=== PATIENT | male | born 1940 | race Caucasian/White ===

== ENCOUNTER 2017-01-20 08:27 | Outpatient (CLI) | payer MEDICARE, BC ==
[~2017-01-20] VITALS: Ht 180.3 cm; Wt 100.0 kg
--- NOTE | ~2017-01-20 | HEMODYNAMI ---
PATIENT:JENNIE YEBOAH MEDICAL RECORD: [id number] : 36 LOCATION:[facility] ADMISSION DATE: 01/20/17 Generatedon:01/20/201714:21 Patient name: JENNIE YEBOAH Patient #: [id number] SSN: [id number] : 1940 Date of study: 01/20/2017 Page: Of Hemodynamic Procedure Report Patient Data Patient Demographics Procedure consent was obtained First Name: JENNIE Gender: Male Last Name: OBINNA : 1940 [facility] Initial: L Age: 76 year(s) Patient #: [id number] Race: SSN: [id number] Additional ID: [id number] Contact details [address]: [address] [place] [address] State: [place] City: [place] Zip code: [address] Admission Admission Data Admission Date: 01/20/2017 Admission Time: 8:27 Arrival Date: 01/20/2017 Arrival Time: 11:00 Admit Source: Other Insurance Payor: Medicare Lab Results Lab Result Date: 01/20/2017 Lab Result Time: 0:00 Biochemistry Name Units Result Min Max BUN mg/dl 21 --(----)-* 7 18 Creatinine mg/dl 1.4 --(----)*- 0.6 1.3 CBC Name Units Result Min Max Hemoglobin g/dl 13.7 --(*---)-- 13.5 17.5 Procedure Procedure Types Cath Procedure Diagnostic Procedure LHC LH w/Coronaries PCI Procedure Coronary Stent Initial Miscellaneous Procedures Moderate Sedation up to 15 minutes Procedure Description Procedure Date Procedure Date: 01/20/2017 Procedure Start Time: 13:44 Procedure End Time: 14:17 Procedure Staff Name Function Hima Laurent MD Performing Physician Jacqueline Huynh RT Scrub José Antonio Coburn RN Nurse Esha Lozoya RT Monitor Indication Angina Procedure Data Cath Procedure Fluoroscopy Diagnostic fluoroscopy Total fluoroscopy Time: 9.1 time: 9.1 min min Diagnostic fluoroscopy Total fluoroscopy dose: dose: 1272 mGy 1272 mGy Contrast Material Contrast Material Type Amount (ml) Isovue 300 144 Entry Location Entry Primary Successful Side Size Upsize Upsize Entry Closure Agiullon ccessful Closure Location (Fr) 1 (Fr) 2 (Fr) Remarks Device Remarks Radial Right 6 Fr Mechanical tr artery Short Compression Femoral Right 7 Fr 7 Fr 7 Fr Exoseal artery Short Long Short Estimated blood loss: 10 ml Diagnostic catheters Device Type Used For End Catheter Placement Terumo 5Fr [place] 110cm Procedure catheter Procedure Complications No complications Procedure Medications Medication Administration Route Dosage Oxygen NC 2 l/min Lidocaine 2% added to field 20 Heparin Flush Bag added to field 2 bags (1000units/500ml NS) 0.9% NaCl I.V. 100 ml/hr Radial Cocktail I.A. 1 syringe (Verapomil 2mg/Nitro 400mcg/Heparin 1500units) Versed I.V. 1 mg Fentanyl I.V. 50 mcg Versed I.V. 1 mg Fentanyl I.V. 50 mcg Radial Cocktail I.A. 1 syringe (Verapomil 2mg/Nitro 400mcg/Heparin 1500units) Heparin Bolus I.V. 4000 units Versed I.V. 1 mg Fentanyl I.V. 50 mcg Versed I.V. 1 mg Fentanyl I.V. 50 mcg Hemodynamics Rest HGB: 13.7 (g/dl) Heart Rate: 66 (bpm) Snapshots Pre Cath Intra NCS Post Cath Vital Signs Time Heart Resp SPO2 etCO2 LY1jawn NIBP (mmHg) Rhythm Pain Sedation Rate (ipm) (%) (mmHg) (mmHg) Status Level (bpm) 12:48:40 65 18 97 0 0 164/70(133) NSR 0 (11) 10(A) , No pain 12:53:11 60 13 96 0 0 166/66(128) NSR 0 (11) 10(A) , No pain 12:57:41 62 16 95 0 0 154/62(121) NSR 0 (11) 10(A) , No pain 13:02:07 63 17 96 0 0 146/61(112) NSR 0 (11) 10(A) , No pain 13:06:25 61 14 93 0 0 135/58(98) NSR 0 (11) 10(A) , No pain 13:10:50 65 16 96 0 0 142/57(104) NSR 0 (11) 10(A) , No pain 13:15:14 64 16 97 0 0 139/57(106) NSR 0 (11) 10(A) , No pain 13:19:38 59 22 97 0 0 133/62(108) NSR 0 (11) 10(A) , No pain 13:23:58 61 16 96 0 0 150/66(121) NSR 0 (11) 10(A) , No pain 13:28:26 66 20 97 0 0 153/63(122) NSR 0 (11) 10(A) , No pain 13:32:51 66 16 97 0 0 148/70(123) NSR 0 (11) 10(A) , No pain 13:37:19 61 17 96 0 0 142/60(103) NSR 0 (11) 10(A) , No pain 13:41:43 64 18 95 0 0 146/66(130) NSR 0 (11) 10(A) , No pain 13:46:07 62 20 95 0 0 158/69(124) NSR 0 (11) 9(A) , No pain 13:50:32 68 18 94 0 0 141/64(109) NSR 0 (11) 9(A) , No pain 13:54:56 63 21 96 0 0 139/63(104) NSR 0 (11) 9(A) , No pain 13:59:22 62 26 96 0 0 144/51(116) NSR 0 (11) 9(A) , No pain 14:03:48 63 17 96 0 0 143/62(119) NSR 0 (11) 9(A) , No pain 14:08:15 64 16 96 0 0 147/65(118) NSR 0 (11) 9(A) , No pain 14:12:41 62 20 95 0 0 155/65(121) NSR 0 (11) 9(A) , No pain 14:17:05 60 19 95 0 0 149/64(126) NSR 0 (11) 10(A) , No pain Medications Time Medication Route Dose Verified Delivered Reason Note s Effectiveness by by 12:49:21 Oxygen NC 2 l/min Hima Chou used for Mehran Coburn logistics specialist 12:49:27 Lidocaine 2% added 20ml Hima Buffie for local to vial Mehran Coburn RN anesthetic field 12:49:34 Heparin Flush added 2 bags Hima Chou used for Bag to Mehran Coburn RN procedure (1000units/500ml field NS) 12:49:43 0.9% NaCl I.V. 100 Hima Buffie Per physician ml/hr Mehran Coburn RN 13:02:02 Radial Cocktail I.A. 1 Hima Rabago (Verapomil syringe Mehran Laurent MD 2mg/Nitro 400mcg/Heparin 1500units) 13:41:54 Versed I.V. 1 mg Hima Lopezie for sedation Mehran Coburn RN 13:42:01 Fentanyl I.V. 50 mcg Hima Lopezie for sedation Mehran Coburn RN 13:46:21 Versed I.V. 1 mg Hima Buffie for sedation Mehran Coburn RN 13:46:24 Fentanyl I.V. 50 mcg Hima Lopezie for sedation Mehran Coburn RN 13:46:33 Radial Cocktail I.A. 1 Hima Rabago for (Verapomil syringe Mehran Laurent MD vasodilation 2mg/Nitro 400mcg/Heparin 1500units) 13:51:45 Heparin Bolus I.V. 4000 Hima Lopezie for veri fied units Mehran Coburn RN anticoagulation with dr laurent 13:55:31 Versed I.V. 1 mg Hima Buffie for sedation Mehran Coburn RN 13:55:34 Fentanyl I.V. 50 mcg Hima Lopezie for sedation Mehran Coburn RN 14:09:48 Versed I.V. 1 mg Hima Lopezie for sedation Mehran Coburn RN 14:09:53 Fentanyl I.V. 50 mcg Hima Lopezie for sedation Mehran Coburn RN Procedure Log Time Note 12:20:21 José Antonio Coburn RN sent for patient. Start room use. 12:31:30 Informed consent obtained and on chart 12:31:39 Diagnostic Cath Status : Elective 12:32:09 Indication : Angina 12:32:25 Time tracking: Regular hours 12:32:30 Plan of Care:Hemodynamics will remain stable., Cardiac rhythm will remain stable., Comfort level will be maintained., Respiratory function will remain adequate., Patient/ family verbilizes understanding of procedure., Procedure tolerated without complication., Recovers from procedure without complications.. 12:34:28 Admit Source: Other 12:34:38 Arrival Date: 01/20/2017 11:00:00 AM 12:34:47 Insurance Payor : Medicare 12:37:09 Lab Result : Hemoglobin 13.7 g/dl 12:37:09 Lab Result : Creatinine 1.4 mg/dl 12:37:09 Lab Result : BUN 21 mg/dl 12:47:17 Patient received from Pre/Post Procedure Room to CCL 1 Alert and oriented. Tansferred to table in Supine position. 12:47:19 Warm blankets applied, and kimberly hugger turned on for patient comfort. 12:47:19 Correct patient and procedure confirmed by team. 12:47:21 ECG and BP/O2 sat monitors applied to patient. 12:47:23 Vital chart was started 12:47:24 Baseline sample Acquired. 12:47:33 Rhythm: sinus rhythm 12:47:47 Full Disclosure recording started 12:48:52 H&P Date Dictated: 01/20/2017 Within 30 days and on chart., H&P Addendum completed by physician on day of procedure. (MUST COMPLETE FOR ALL OUTPATIENTS). 12:48:54 Pre-procedure instructions explained to patient. 12:48:54 Pre-op teaching completed and patient verbalized understanding. 12:49:03 Family in waiting room. 12:49:09 Patient NPO since Midnight. 12:49:21 Oxygen 2 l/min NC was administered by José Antonio Coburn RN; used for procedure; 12:49:22 Is the patient allergic to Iodine/contrast media? No. 12:49:23 Is the patient allergic to Iodine/contrast media? No. 12:49:27 Lidocaine 2% 20ml vial added to field was administered by José Antonio Coburn RN; for local anesthetic; 12:49:27 Was the patient premedicated? No 12:49:30 Is patient on blood thinner?Yes 12:49:34 Heparin Flush Bag (1000units/500ml NS) 2 bags added to field was administered by José Antonio Coburn RN; used for procedure; 12:49:34 ACC The patient was administered the following blood thiners within the last 24 hours: ACCPlavix 12:49:43 0.9% NaCl 100 ml/hr I.V. was administered by José Antonio Coburn RN; Per physician; 12:50:17 Patient diabetic? No. 12:50:21 Previous problem with sedation/anesthesia? No ? 12:50:22 Snore? Yes 12:50:24 Sleep apnea? Yes 12:50:25 Deviated septum? No 12:50:26 Opens mouth fully? No 12:50:27 Sticks out tongue? Yes 12:50:30 Airway obstruction? No ? 12:50:33 Dentures? No ? 12:50:40 Pre procedure: right dorsailis pedis pulse 1+ Palpable, but thready & weak; easily obliterated 12:50:43 Patient pain scale 0/10 ?. 12:50:50 IV patent on arrival in left forearm with 0.9% NaCl at [facility]. 12:50:55 Lab results completed and on chart. 12:51:00 Right Radial & Right Groin area was prepped with chlora-prep and draped in sterile fashion 12:51:01 Alarms reviewed by R. N. 12:51:02 Sharps counted by scrub and verified by R.N. 12:53:00 Use device set Radial Dx 12:53:02 Acist Syringe opened to sterile field. 12:53:02 Medline Cath Pack opened to sterile field. 12:53:03 Bag Decanter opened to sterile field. 12:53:03 Terumo 6Fr Slender Glidesheath opened to sterile field. 12:53:04 St Fuad 260cm J .035 wire opened to sterile field. 12:53:05 Acist Hand Control opened to sterile field. 12:53:06 Acist Manifold opened to sterile field. 12:53:13 Tegaderm 4 x 4 opened to sterile field. 13:02:02 Radial Cocktail (Verapomil 2mg/Nitro 400mcg/Heparin 1500units) 1 syringe I.A. was administered by Hima Laurent MD; ; 13:39:30 Physician arrived 13:39:33 --------ALL STOP TIME OUT------ 13:39:33 Final Timeout: patient, procedure, and site verified with staff and physician. All members of the team are in agreement. 13:39:36 Right Radial & Right Groin site verified by team. 13:39:49 Sedation plan: IV Moderate Sedation Versed, Fentanyl 13:41:54 Versed 1 mg I.V. was administered by José Antonio Coburn RN; for sedation; 13:42:01 Fentanyl 50 mcg I.V. was administered by José Antonio Coburn RN; for sedation; 13:43:53 Procedure started. 13:44:07 Local anesthetic to right radial artery with Lidocaine 2% by Hima Laurent MD.INITIAL ACCESS ONLY 13:45:38 A 6 Fr Short sheath was inserted into the Right Radial artery 13:46:18 A Terumo 5Fr [place] 110cm catheter was advanced over the wire and used for Procedure. 13:46:21 Versed 1 mg I.V. was administered by José Antonio Coburn RN; for sedation; 13:46:24 Fentanyl 50 mcg I.V. was administered by José Antonio Coburn RN; for sedation; 13:46:31 LV angiography performed. 13:46:33 Radial Cocktail (Verapomil 2mg/Nitro 400mcg/Heparin 1500units) 1 syringe I.A. was administered by Hima Laurent MD; for vasodilation; 13:47:20 EF : 55 % 13:47:28 LCA angiography performed. 13:48:37 RCA angiography performed. 13:51:10 Medtronic Launcher 7Fr HS II SH guide catheter opened to sterile field. 13:51:11 [place] [facility] Choice PT Extra Support J 300cm .014 gu opened to sterile field. 13:51:13 Terumo 7Fr Redmon Sheath opened to sterile field. 13:51:14 Merit BasixCompak Inflation Kit opened to sterile field. 13:51:45 Heparin Bolus 4000 units I.V. was administered by José Antonio Coburn RN; for anticoagulation; verified with dr laurent 13:52:03 Local anesthetic to right femoral artery with Lidocaine 2% by Hima Laurent MD.ADDITIONAL ACCESS 13:52:14 A 7 Fr Short sheath was inserted into the Right Femoral artery 13:52:31 7 Fr HS2 SH guide catheter was inserted over the wire 13:52:41 Guide catheter removed. 13:53:25 Sheath upsized to a 7 Fr Long. 13:54:43 Arrow 7Fr 45cm Sheath opened to sterile field. 13:55:31 Versed 1 mg I.V. was administered by Jsoé Antonio Coburn RN; for sedation; 13:55:34 Fentanyl 50 mcg I.V. was administered by José Antonio Coburn RN; for sedation; 13:55:39 7 Fr HS2 guide catheter was inserted over the wire 13:55:47 pt graphics wire advanced. 13:55:49 Wire advanced across lesion. 13:56:57 Inflation number: 1 A [place] [facility] [place] 3.0 X 20 balloon was prepped and advanced across the Mid RCA, then inflated to 15 MARÍA for 0:11 (min:sec). 13:57:21 Inflation number: 1 The [place] [facility] [place] 3.0 X 20 balloon was reinflated across the Prox RCA, to 15 MARÍA for 0:10 (min:sec). 13:57:48 Balloon removed over the wire. 14:00:19 [place] Sci Choice PT Extra Support J 300cm .014 gu opened to sterile field. 14:00:37 choice PT aubrey wire advanced. 14:01:55 [place] Sci Choice PT Extra Support J 300cm .014 gu opened to sterile field. 14:02:23 dropped wire. another wire opened 14:03:42 Inflation Number: 2 A Biofreedom 3.0 x 24 stent was prepped and advanced across the Mid RCA. The stent was deployed at 15 MARÍA for 0:11 (min:sec). 14:08:11 Inflation Number: 1 A Biofreedom 3.5 x 14 stent was prepped and advanced across the Mid RCA1. The stent was deployed at 15 MARÍA for 0:13 (min:sec). 14:08:44 aubrey wire out 14:09:48 Versed 1 mg I.V. was administered by José Antonio Coburn RN; for sedation; 14:09:53 Fentanyl 50 mcg I.V. was administered by José Antonio Coburn RN; for sedation; 14:10:05 Inflation Number: 2 A Biofreedom 3.5 x 14 stent was prepped and advanced across the Prox RCA. The stent was deployed at 15 MARÍA for 0:07 (min:sec). 14:11:06 Cordis 7Fr Exoseal opened to sterile field. 14:11:18 Wire removed. 14:11:19 Guide catheter removed. 14:12:05 Sheath upsized to a 7 Fr Short. 14:12:05 Sheath removed intact; hemostasis achieved with Exoseal to the Right Femoral artery. 14:12:20 Sheath removed intact; hemostasis achieved with Mechanical Compression to the Right Radial artery. 14:14:39 Terumo TR Band Standard opened to sterile field. 14:15:11 Fluoroscopy dose: 1272 mGy 14:15:11 Flurop Dose total: 1272 14:15:25 Fluoroscopy time 09.10 minutes. 14:15:32 Contrast amount:Isovue 300 144ml. 14:15:47 Sharps counted by scrub and verified by R.N. 14:15:50 TR band inflated with 10cc of air. 14:15:52 Insertion/operative site no bleeding no hematoma. 14:16:00 Post right femoral artery:stable 14:16:03 Post Procedure Pulses reassessed and unchanged 14:16:07 Post-procedure physical assessment completed. ASA score P 2 - A patient with mild systemic disease as per Hima Laurent MD. 14:16:10 Post procedure rhythm: unchanged. 14:16:14 Estimated blood loss: 10 ml 14:16:15 Post procedure instruction explained to patient.Patient verbalizes understanding. 14:16:33 Procedure type changed to Cath procedure, Diagnostic procedure, LHC, LHC w/Coronaries, PCI procedure, Coronary Stent Initial, Miscellaneous Procedures, Moderate Sedation up to 15 minutes 14:16:35 Procedure and supply charges have been captured, reviewed, submitted and are correct. 14:17:37 Procedure Complication : No complications 14:17:40 Vital chart was stopped 14:17:41 See physician's report for complete and final results. 14:17:43 Report given to Pre/Post Procedure Room. 14:17:46 Patient transfered to Pre/Post Procedure Room with Stretcher. 14:17:49 Procedure ended. 14:17:49 Full Disclosure recording stopped 14:17:53 End room use (Document Last) 14:21:35 ACC-PCI Only Patient was given prescriptions, or instructed by Hima Laurent MD to start/continue the following medications upon discharge: Plavix Intervention Summary Intervention Notes Time ActionType Lesion and Equipment Action# Pressure Duration Attributes Used 13:56:57 Inflate Mid RCA [place] [facility] 1 15 00:11 balloon [place] 3.0 X 20 balloon 13:57:21 Reinflate Prox RCA [place] [facility] 1 15 00:10 balloon [place] 3.0 X 20 balloon 14:03:42 Place stent Mid RCA Biofreedom 2 15 00:11 3.0 x 24 stent 14:08:11 Place stent Mid RCA1 Biofreedom 1 15 00:13 3.5 x 14 stent 14:10:05 Place stent Prox RCA Biofreedom 2 15 00:07 3.5 x 14 stent Device Usage Item Name Manufacture Quantity Catalog Number Hospital Part Current Mini [facility] Lot# / Charge Number Stock Stock Serial# Code Acist Acist 1 84572 755939 581647 202332 20 Syringe Medical Systems Inc Medline Cardinal 1 [id number] 792512 84930 463097 5 Cath Pack Health Bag Microtek 1 2002S 125869 29972 070680 5 Decanter Medical Inc. Terumo 6Fr Terumo 1 [id number] 859009 577050 688283 [address] Fu[address] St Fuad 1 159584 001813 610507 147642 30 260cm J .035 wire Acist Hand Acist 1 89638 532788 531794 850487 5 Control Medical Systems Inc Acist Acist 1 89615 310718 657418 016051 5 Manifold Medical Systems Inc Tegaderm 4 3M 1 1626W 603698 484262 978135 5 x 4 Terumo 5Fr Terumo 1 40-5830 800103 052003 731978 5 [place] 110cm catheter Medtronic Medtronic 1 [id number] 623842 521855 497931 0 Launcher 7Fr HS II SH guide catheter [place] [facility] [place] 3 [id number] 716843 440871 849077 5 Choice PT Scientific Extra Support J 300cm .014 gu Terumo 7Fr Terumo 1 [id number] 691728 193874 729889 5 Redmon Sheath Merit Merit 1 [id number] 784455 778326 997251 15 [facility] Inflation Kit Arrow 7Fr Teleflex 1 CL-[id number] 849983 892434 383098 1 45cm Sheath [place] [facility] [place] 1 [id number] 396143 854386 991271 1 [id number] [email or web address] 3.0 X 20 balloon Biofreedom Biosensors 1 BFRC2-3024 327730 059623 5 [id number] 3.0 x 24 [place] SA stent Biofreedom Biosensors 2 BFRC2-5926 667508 890065 5 [id number] 3.5 x 14 [place] SA [id number] stent Cordis 7Fr Cardinal 1 EX700 667274 220159 089910 5 [facility] 1 [id number] 588578 028001 412536 40 Band Standard Signature Audit Clark[place] Stage Time Signature Unsigned Intra-Procedure 01/20/2017 Esha Lozoya 2:21:53 PM RT(R) Signatures Monitor : Esha Lozoya Signature : RT Date : Time : [facility] [address] [facility] [place] [address]
[2017-01-20] MEDS ORDERED: LISINOPRIL2.5 MG PO (09:06)
[2017-01-20] MEDS ORDERED: PROPAFENONE HC300 MG PO (09:07)
[2017-01-20] MEDS ORDERED: NORVASC5 MG PO (09:08)
[2017-01-20] MEDS ORDERED: HYDROCHLOROTHIA25 MG (09:09)
[2017-01-20] MEDS ORDERED: PRAVACHOL40 MG PO (09:09)
[2017-01-20] MEDS ORDERED: BUPROPION HCL150 M1 PO (09:10)
[2017-01-20] MEDS ORDERED: GLUCOPHAGE500 MG PO (09:10)
[2017-01-20] MEDS ORDERED: BAYER CHEWABLE81 MG PO (09:11)
[2017-01-20] MEDS ORDERED: TRAZODONE HCL150 MG PO (09:11)
[2017-01-20] MEDS ORDERED: OMEPRAZOLE20 M1 PO (09:11)
[2017-01-20] MEDS ORDERED: PLAVIX75 MG PO (09:12)
[2017-01-20 09:14] VITALS: BP 170/68; BMI 33.5
[2017-01-20 09:23] LABS: BASOPHILS 0.2 % (0-2); EOSINOPHILS 1.5 % (0-7); HEMATOCRIT 42.2 % (42.0-54.0); HEMOGLOBIN 13.7 g/dL (13.5-17.5); IMMATURE GRANULOCYTES 0.3 % (0-5); LYMPHOCYTES 21.5 % (15-50); MCH 30.9 pg (26.0-34.0); MCHC 32.5 g/dL (31.0-37.0); MEAN PLATELET VOLUME 10.8 fL (7.4-10.4); MONOCYTES 9.3 % (2-11); NEUTROPHILS 67.2 % (40-80); PLATELET COUNT 196 10x3/uL (130-400); RBC 4.44 10x6/uL (4.20-6.10); RDW 12.6 % (11.5-14.5); WBC 8.7 10x3/uL (4.8-10.8)
[2017-01-20 09:37] LABS: ANION GAP 10.2 mmol/L (8-16); CALCIUM 9.4 mg/dL (8.5-10.1); CARBON DIOXIDE 28.7 mmol/L (21.0-32.0); CREATININE - SERUM 1.4 mg/dL (0.6-1.3); POTASSIUM - SERUM 3.9 mmol/L (3.5-5.1)
[2017-01-20 10:17] LABS: CKMB 0.9 U/L (0.0-3.6); CREATINE KINASE 47 UL (21-232); TROPONIN-I < 0.017 ng/mL (0.000-0.060)
--- NOTE | 2017-01-20 15:45 | NUR ---
1500-TR BAND INTACT, RIGHT GROIN CDI, NO HEMATOMA. AT SIDE. 1530-NO CHANGE IN TR BAND OR RIGHT GROIN. STABLE.
--- NOTE | 2017-01-20 15:48 | NUR ---
1547-REPORT CALLED TO MED 2, IV PATENT, VSS. WILL TRANSPORT BY BED. EKG AND LAB TO BE DONE IN AM
--- NOTE | 2017-01-20 16:14 | NUR ---
[employer] RECOVERY.. TR BAND TO RIGHT WRIST INTACT, NO BLEEDING. FINGERS WARM. RIGHT GROIN SOFT WITH DRSG DRY AND INTACT. DENIES ANY NEEDS. TELEMERTY SHOWS SR 62. WILL MONITOR
--- NOTE | 2017-01-20 17:41 | NUR ---
RIGHT GROIN SOFT WITH DRSG DRY AND INTACT. V/S STABLE. TR BAND WITH 1/2 OF AIR OUT. NO BLEEDING.SR UP WITH CALL LIGHT IN REACH
[2017-01-20 18:04] VITALS: BP 171/69; Ht 180.3 cm; Wt 100.0 kg
--- NOTE | 2017-01-20 18:12 | NUR ---
ASSESSMENT COMPLETE DENIES ANY NEEDS AT THIS TIME NAD NOTED AT BEDSIDE
[2017-01-20 19:00] VITALS: BP 173/67
[2017-01-21 07:33] VITALS: BP 176/68
--- NOTE | 2017-01-21 07:58 | NUR ---
EKG AND LAB DRAW COMPLETED.
[2017-01-21 08:00] VITALS: BP 143/65
--- NOTE | 2017-01-21 08:52 | NUR ---
IV AND TELEMETRY DCD. DC PLANS GIVEN. UNDERSTANDING VOICED. DOES NOT DRIVE. UNABLE TO LEAVE HOSP TILL 1600PM. 24 HRS POST PROCEDURE. UNDERSTANDING VOICED.
--- NOTE | 2017-01-21 09:54 | NUR ---
DECIDED SHE WOULD DRIVE HER HUSNAND HOME. STATED SHE COULD DRIVE, JUST DIDNT LIKE TO, BUT THEY DID NOT WANT TO WAIT TILL 1600. ESCORTED TO CAR BY W/C. ELEMENTARY ART TEACHER NOTIFIED.
--- NOTE | 2017-01-23 10:25 | OP ---
PATIENT NAME: JENNIE YEBOAH MEDICAL RECORD: [id number] :36 LOCATION:D.[facility] ADMISSION DATE: SURGEON: DIPAK HAM MD DATE OF OPERATION: 01/20/2017 PROCEDURES: 1. PTCA stent of RCA. 2. Left heart catheterization. 3. Selective angiography. 4. Left ventriculogram. INDICATION: Angina and coronary artery disease. DESCIPRTION OF PROCEDURE: After informed consent was obtained and after detailed explanation of risks, benefits as well as alternative therapies, the patient elected to proceed with angiogram and angioplasty. The right femoral area was prepped and draped in normal sterile fashion. Right femoral artery was cannulated via modified Seldinger technique with placement of a 7-Zimbabwean sheath. All catheters exchanged through this sheath. FINDINGS: The left ventriculogram was performed in standard 30-degree BATRES view, reveals good cardiac wall motion throughout all segments. Overall ejection fraction 50% to 55%. SELECTIVE CORONARY ANGIOGRAPHY: 1. Left main showed no significant angiographic disease. 2. Left anterior descending has moderate irregularities, but no flow-limiting stenosis. 3. The left circumflex has moderate irregularities, but no flow-limiting stenosis. 4. Right coronary has 2 lesions. Proximal lesion is 75% stenosed, GABRIELLA 3 flow approximately 12 mm of the 3.5 vessel. The mid lesion is 75% stenosed. This is a long lesion 3.5 mm at the beginning of the lesion, 3.0 mm at the distal end of the lesion. It is approximately 30 mm in length, GABRIELLA-3 flow. PERCUTANEOUS TRANSLUMINAL CORONARY ANGIOPLASTY STENT OF THE RIGHT CORONARY ARTERY: The lesion 2 was addressed with a 3.0 x 24 and 3.5 x 14, both BioFreedom stents overlapping. Lesion #1 was addressed with a 3.5 x 14 mm BioFreedom stent. Result was 0% residual stenosis. OVERALL IMPRESSION: Successful percutaneous transluminal coronary angioplasty stent of the right coronary artery going from 75% initial stenosis times 2 to 0% residual stenosis with GABRIELLA-3 flow. TRANSINT:[id number] Voice Confirmation ID: [id number] DOCUMENT ID: [id number] DIPAK HAM MD at 1025 CC: [id number] DICTATION DATE: 01/20/17 1424 RADIO PROGRAM CHECKER: 01/20/17 2141 DEP CLI 01/21/17 [facility] [address] [place] [address]
== END 2017-01-21 09:58 | disposition home or self-care (01) ==
LOC: D.CATH 08:27 → D.M2 15:50 → D.CATH 01-21 09:58
PROVIDERS: Internal Medicine Interventional Cardiology
DX: I25.119 Atherosclerotic heart disease of native coronary artery with unspecified angina pectoris (principal); Z00.6 Encounter for examination for normal comparison and control in clinical research program
CPT/HCPCS: 93458; C9600

== ENCOUNTER 2017-06-07 09:25 | Outpatient (CLI) | payer MEDICARE, BC ==
[~2017-06-07] VITALS: Ht 180.3 cm; Wt 104.3 kg
--- NOTE | ~2017-06-07 | HEMODYNAMI ---
PATIENT:JENNIE YEBOAH MEDICAL RECORD: [id number] : 36 [id number] ADMISSION DATE: 06/07/17 Generatedon:06/07/201716:39 Patient name: JENNIE YEBOAH Patient #: [id number] SSN: [id number] : 1940 Date of study: 06/07/2017 Page: Of Hemodynamic Procedure Report Patient Data Patient Demographics Procedure consent was obtained First Name: JENNIE Gender: Male Last Name: OBINNA : 1940 Middle Initial: L Age: 76 year(s) Patient #: [id number] Race: SSN: [id number] Additional ID: [id number] Contact details [address]: [address] [place] [address] State: [place] City: [place] Zip code: [address] Past Medical History Allergies: No known allergies Admission Admission Data Admission Date: 06/07/2017 Admission Time: 9:25 Room #: D.2114 Height (in.): 70 BSA: 2.22 (m2) Height (cm.): 177.8 BMI: 33 (kg/m2) Weight (lbs.): 230 Weight (kg.): 104.33 Procedure Procedure Types Cath Procedure Diagnostic Procedure C [facility] w/Coronaries PCI Procedure PTCA Initial Miscellaneous Procedures Moderate Sedation up to 15 minutes Procedure Description Procedure Date Procedure Date: 06/07/2017 Procedure Start Time: 16:12 Procedure End Time: 16:31 Procedure Staff Name Function Hima Laurent MD Performing Physician Caleb Miranda RT Scrub Lakhwinder Dey RN Nurse Esha Lozoya RT Monitor Procedure Data Cath Procedure Fluoroscopy Diagnostic fluoroscopy Total fluoroscopy Time: 5 time: 5 min min Diagnostic fluoroscopy Total fluoroscopy dose: 829 dose: 829 mGy mGy Contrast Material Contrast Material Type Amount (ml) Isovue 300 108 Entry Location Entry Primary Successful Side Size Upsize Upsize Entry Closure Succes sful Closure Location (Fr) 1 (Fr) 2 (Fr) Remarks Device Remarks Femoral Right 5 Fr 6 Fr artery Short Estimated blood loss: 10 ml Diagnostic catheters Device Type Used For End Catheter Placement Cordis 5Fr Pigtail Procedure Catheter (MP) Cordis 5Fr JL 4.0 Procedure Catheter (MP) Cordis 5Fr 3DRC Catheter Procedure (MP) Procedure Medications Medication Administration Route Dosage Oxygen NC 2 l/min Heparin Flush Bag added to field 2 bags (1000units/500ml NS) 0.9% NaCl I.V. 100 ml/hr Fentanyl I.V. 50 mcg Versed I.V. 1 mg Fentanyl I.V. 50 mcg Versed I.V. 1 mg Heparin Bolus I.V. 4000 units Integrilin (Bolus I.V. 9.5 ml 2mg/ml) Integrilin (Bolus wasted 0.5 ml 2mg/ml) Plavix P.O. 600 mg Hemodynamics Rest BSA: 2.22 (m2) O2 Consumption: Estimated: 247.4 (ml/min) O2 Consumption indexed: Estimated:111.44 (ml/min/m) Heart Rate: 62 (bpm) Snapshots Pre Cath Intra NCS Post Cath Vital Signs Time Heart Resp SPO2 etCO2 [id number] NIBP (mmHg) Rhythm Pain Sedation Rate (ipm) (%) (mmHg) (mmHg) Status Level (bpm) 15:54:45 69 18 100 0 0 191/85(141) NSR 0 (11) 10(A) , No pain 15:59:22 74 20 97 0 0 187/81(137) NSR 0 (11) 10(A) , No pain 16:03:56 72 19 92 0 0 187/76(122) NSR 0 (11) 10(A) , No pain 16:08:32 73 21 92 0 0 171/76(130) NSR 0 (11) 10(A) , No pain 16:13:05 77 20 95 0 0 177/81(128) NSR 0 (11) 9(A) , No pain 16:17:41 75 20 98 0 0 185/77(129) NSR 0 (11) 9(A) , No pain 16:22:15 76 19 98 0 0 180/76(129) NSR 0 (11) 9(A) , No pain 16:26:52 75 21 97 0 0 194/83(137) NSR 0 (11) 9(A) , No pain 16:31:28 72 21 96 0 0 194/85(130) NSR 0 (11) 9(A) , No pain 16:36:15 68 20 96 0 0 190/84(136) NSR 0 (11) 9(A) , No pain Medications Time Medication Route Dose Verified Delivered Reason Notes Effectiveness by by 16:01:41 Oxygen NC 2 Lakhwinder Lakhwinder Per physician l/min Tiburcio Dey RN RN 16:01:52 Heparin Flush added 2 Lakhwinder Lakhwinder used for Bag to bags Tiburcio Dey RN procedure (1000units/500ml field RN NS) 16:02:03 0.9% NaCl I.V. 100 Lakhwinder Lakhwinder Per physician ml/hr Tiburcio Dey RN RN 16:10:47 Fentanyl I.V. 50 Lakhwinder Lakhwinder for sedation mcg Tiburcio Dey RN RN 16:10:57 Versed I.V. 1 mg Lakhwinder Lakhwinder for sedation Tiburcio Dey RN RN 16:14:15 Fentanyl I.V. 50 Lakhwinder Lakhwinder for sedation mcg Tiburcio Dey RN RN 16:14:20 Versed I.V. 1 mg Lakhwinder Lakhwinder for sedation Tiburcio Dey RN RN 16:21:02 Heparin Bolus I.V. 4000 Lakhwinder Lakhwinder for units Tiburcio Dey RN anticoagulation RN 16:21:33 Integrilin I.V. 9.5 Lakhwinder Lakhwinder for (Bolus 2mg/ml) ml Tiburcio Dey RN antiplatelet RN therapy 16:21:50 Integrilin wasted 0.5 Lakhwinder Dohertyy for (Bolus 2mg/ml) ml Tiburcio Dey RN antiplatelet RN therapy 16:33:04 Plavix P.O. 600 Lakhwinder Lakhwinder for mg Tiburcio Dey RN antiplatelet RN therapy Procedure Log Time Note 15:33:20 Lakhwinder Dey RN sent for patient. Start room use. 15:47:30 Patient Height : 70 inches 15:47:35 Patient Weight : 230 lbs 15:48:16 Diagnostic Cath status Elective 15:48:21 Time tracking: Regular hours 15:48:27 Plan of Care:Hemodynamics will remain stable., Cardiac rhythm will remain stable., Comfort level will be maintained., Respiratory function will remain adequate., Patient/ family verbilizes understanding of procedure., Procedure tolerated without complication., Recovers from procedure without complications.. 15:48:35 Patient received from Med II to CCL 1 Alert and oriented. Tansferred to table in Supine position. 15:48:41 Warm blankets applied, and kimberly hugger turned on for patient comfort. 15:48:42 Correct patient and procedure confirmed by team. 15:48:44 Signed procedure consent form obtained from patient. 15:48:45 ECG and BP/O2 sat monitors applied to patient. 15:48:45 Vital chart was started 15:48:46 Baseline sample Acquired. 15:48:51 Rhythm: sinus rhythm 15:48:53 Full Disclosure recording started 15:49:07 H&P Date Dictated: 06/07/2017 Within 30 days and on chart.. 15:49:10 Pre-procedure instructions explained to patient. 15:49:13 Family in waiting room. 15:49:15 Patient NPO since Lunch. 15:49:24 Patient allergic to No known allergies 15:49:31 Is patient on blood thinner?No 15:49:37 Patient diabetic? Yes. 15:49:39 If diabetic: On Metformin? Yes 15:49:44 If on Metformin: Last Dose? 06/05/2017 15:49:49 Snore? Yes 15:49:51 Sleep apnea? No 15:49:58 Dentures? No ? 15:50:03 Patient pain scale 0/10 ?. 15:50:10 IV patent on arrival in left hand with 0.9% NaCl at KVO. 15:50:18 Lab results completed and on chart. 15:50:23 Right groin area was prepped with chlora-prep and draped in sterile fashion 15:50:24 Alarms reviewed by R. N. 15:50:25 Sharps counted by scrub and verified by R.N. 15:50:27 Physician paged 15:53:14 Vital chart was stopped 15:53:16 Vital chart was started 16:01:41 Oxygen 2 l/min NC was administered by Lakhwinder Dey RN; Per physician; 16:01:52 Heparin Flush Bag (1000units/500ml NS) 2 bags added to field was administered by Lakhwinder Dey RN; used for procedure; 16:02:03 0.9% NaCl 100 ml/hr I.V. was administered by Lakhwinder Dey RN; Per physician; 16:10:00 Physician arrived 16:10:01 --------ALL STOP TIME OUT------ 16:10:01 Final Timeout: patient, procedure, and site verified with staff and physician. All members of the team are in agreement. 16:10:04 Right groin site verified by team. 16:10:09 Sedation plan: IV Moderate Sedation Versed, Fentanyl 16:10:16 Use device set Femoral Dx 16:10:17 Acist Syringe opened to sterile field. 16:10:17 Bag Decanter opened to sterile field. 16:10:18 Medline Cath Pack opened to sterile field. 16:10:18 Terumo 5Fr [place] Sheath opened to sterile field. 16:10:20 Acist Hand Control opened to sterile field. 16:10:20 Acist Manifold opened to sterile field. 16:10:20 Diagnostic Infinity 5Fr Multipack catheter opened to sterile field. 16:10:24 Tegaderm 4 x 4 opened to sterile field. 16:10:26 St Fuad 260cm J .035 wire opened to sterile field. 16:10:47 Fentanyl 50 mcg I.V. was administered by Lakhwinder Dey RN; for sedation; 16:10:57 Versed 1 mg I.V. was administered by Lakhwinder Dey RN; for sedation; 16:11:52 Procedure started. 16:12:02 Local anesthetic to right femoral artery with Lidocaine 2% by Hima Laurent MD.INITIAL ACCESS ONLY 16:12:54 A 5 Fr sheath was inserted into the Right Femoral artery 16:14:02 A Cordis 5Fr Pigtail Catheter (MP) was advanced over the wire and used for Procedure. 16:14:08 LV gram done using BATRES 16:14:15 Fentanyl 50 mcg I.V. was administered by Lakhwinder Dey RN; for sedation; 16:14:20 Versed 1 mg I.V. was administered by Lakhwinder Dey RN; for sedation; 16:14:20 EF : 60 % 16:14:21 Catheter removed. 16:14:31 A Cordis 5Fr JL 4.0 Catheter (MP) was advanced over the wire and used for Procedure. 16:14:35 LCA angiography performed. 16:16:21 Catheter removed. 16:16:34 A Cordis 5Fr 3DRC Catheter (MP) was advanced over the wire and used for Procedure. 16:16:38 RCA angiography performed. 16:18:16 Catheter removed. 16:18:32 Terumo 6Fr [place] Sheath opened to sterile field. 16:18:32 Merit BasixCompak Inflation Kit opened to sterile field. 16:18:33 Gupta Whisper J 300cm 0.014 guide wire opened to sterile field. 16:18:45 Sheath upsized to a 6 Fr Short. 16:20:06 Medtronic Launcher 6Fr HS II SH guide catheter opened to sterile field. 16:20:18 6 Fr hs2sh guide catheter was inserted over the wire 16:20:29 whisper wire advanced. 16:20:32 Wire advanced across lesion. 16:21:02 Heparin Bolus 4000 units I.V. was administered by Lakhwinder Dey RN; for anticoagulation; 16:21:33 Integrilin (Bolus 2mg/ml) 9.5 ml I.V. was administered by Lakhwinder Dey RN; for antiplatelet therapy; 16:21:50 Integrilin (Bolus 2mg/ml) 0.5 ml wasted was administered by Lakhwinder Dey RN; for antiplatelet therapy; 16:22:34 Balloon removed. unable to cross lesion. 16:24:23 Inflation number: 1 A Euphora 2.5 x 15 Balloon was prepped and advanced across the Mid RCA, then inflated to 21 MARÍA for 0:00 (min:sec). 16:24:29 Balloon removed over the wire. 16:25:25 Inflation number: 2 A Mozec Rx 3.0 x 14 balloon was prepped and advanced across the Mid RCA, then inflated to 21 MARÍA for 0:10 (min:sec). 16:26:25 Wire removed. 16:26:28 Guide catheter removed. 16:26:49 Cordis 6Fr Exoseal opened to sterile field. 16:26:51 Procedure ended.(Physican Out) ::19 Fluoroscopy time 05.00 minutes. :: Fluoroscopy dose: 829 mGy 16:: Flurop Dose total: 829 16:: Contrast amount:Isovue 300 108ml. 16:29:31 Sharps counted by scrub and verified by R.N. 16:29:35 Insertion/operative site no bleeding no hematoma. 16:29:39 Post-op/insertion site Right Femoral artery dressed using a 4 x 4 and Tegaderm. 16:29:43 Post right femoral artery:stable 16:29:55 Post procedure rhythm: unchanged. 16:29:59 Estimated blood loss: 10 ml 16:30:01 Post procedure instruction explained to patient.Patient verbalizes understanding. 16:31:07 Procedure type changed to Cath procedure, Diagnostic procedure, LHC, LHC w/Coronaries, PCI procedure, PTCA Initial, Miscellaneous Procedures, Moderate Sedation up to 15 minutes 16:31:10 Procedure and supply charges have been captured, reviewed, submitted and are correct. 16:31:33 Report given to Pre/Post Procedure Room. 16::39 Patient transfered to [facility] II with Stretcher. 16::42 Procedure ended. 16::42 Full Disclosure recording stopped 16:31:45 End room use (Document Last) 16:32:19 St Fuad Femstop Arch Gold opened to sterile field. 16:33:04 Plavix 600 mg P.O. was administered by Lakhwinder Dey RN; for antiplatelet therapy; 16:39:55 Vital chart was stopped Intervention Summary Intervention Notes Time ActionType Lesion and Equipment Action# Pressure Duration Attributes Used 16:24:23 Inflate Mid RCA Euphora 1 21 00:00 balloon 2.5 x 15 Balloon 16:25:25 Inflate Mid RCA Mozec Rx 2 21 00:10 balloon 3.0 x 14 balloon Device Usage Item Name Manufacture Quantity Catalog Hospital Part Current Minima l Lot# / Number Charge Number Stock Stock Serial# Code Acist Acist 1 78135 726366 139156 218974 20 Syringe Medical Systems Inc Bag Microtek 1 2002S 670669 63128 163491 5 Decanter Medical Inc. Medline Cardinal 1 [id number] 917038 62460 813957 5 Cath Pack Health Terumo 5Fr Terumo 1 [id number] 125371 362804 517741 40 [place] Sheath Acist Hand Acist 1 72578 693754 139961 857250 5 Control Medical Systems Inc Acist Acist 1 62170 893765 158989 407535 5 Manifold Medical Systems Inc Diagnostic Cardinal 1 [id number] 189011 48925 386553 30 Amulaire Thermal Technologyity Health 5Fr Multipack catheter Tegaderm 4 3M 1 1626W 558867 880624 464[address] Fuad 1 765942 010036 169592 509705 30 260cm J .035 wire Cordis 5Fr Cardinal 1 720934 5 Pigtail Health Catheter (MP) Cordis 5Fr Cardinal 1 949112 5 JL 4.0 Health Catheter (MP) Cordis 5Fr Cardinal 1 796220 5 3DRC Health Catheter (MP) Terumo 6Fr Terumo 1 [id number] 914377 254660 305001 40 [place] Sheath Merit Merit 1 [id number] 426776 967592 552349 15 BasixLumenis Medical Inflation Kit Gupta Gupta 1 [id number] 271841 315626 304137 5 Whisper J Vascular 300cm 0.014 guide wire Medtronic Medtronic 1 [id number] 628830 05928 897295 1 Launcher 6Fr HS II SH guide catheter Euphora 2.5 Medtronic 1 [id number] 111225 227348 265385 5 [id number] x 15 Balloon Mozec Rx Cardinal 1 [id number] 202656 069057492 740604 5 UMOA71 3.0 x 14 Health balloon Cordis 6Fr Cardinal 1 EX600 519386 898184 901665 10 [facility] Fuad St Fuad 1 [id number] 918813 923949 446066 5 Femstop Arch Gold Signature Audit [place] Stage Time Signature Unsigned Intra-Procedure 06/07/2017 Esha Lozoya 4:39:52 PM RT(R) Signatures Monitor : Esha Lozoya Signature : RT Date : Time : [facility] [address] [facility] [place] [address]
[~2017-06-07 09:25] MED LIST: BAYER CHEWABLE81 MG PO; BUPROPION HCL150 M1 PO; GLUCOPHAGE500 MG PO; HYDROCHLOROTHIA25 MG PO; LISINOPRIL2.5 MG PO; NORVASC5 MG PO; OMEPRAZOLE20 M1 PO; PLAVIX75 MG PO; PRAVACHOL40 MG PO; PROPAFENONE HC300 MG PO; TRAZODONE HCL150 MG PO
[2017-06-07 12:30] VITALS: BP 160/57; BMI 32.8
--- NOTE | 2017-06-07 15:47 | NUR ---
ALERT AND ORIENTED X4. PRE-OP COMPLETE. TAKEN TO MACHINE WORKER VIA BED. CONTINUE PLAN OF CARE AND SAFETY PRECAUTIONS.
--- NOTE | 2017-06-07 17:15 | NUR ---
ARRIVE BACK TO ROOM VIA BED FROM KITCHEN MECHANIC. ALERT AND ORIENTED X4. FEMSTOP IN PLACE. HEMATOMA RT GROIN. PRESSURE RELEASED FROM FEMSTOP. BP-145/76, P-64 SINUS RHTHYM WITH PACED BEATS ON TELEMETRY. FAMILY AT BEDSIDE. PULSES +1 BILATERALLY. CONTINUE PLAN OF CARE AND SAFETY PRECAUTIONS. BED FLAT FOR 5HRS.
--- NOTE | 2017-06-07 17:45 | NUR ---
ALERT AND ORIENTED X4. BEGIN DECREASING FEMSTOP PRESSURE FROM 230 TO 165mmHG. HEMATOMA GETTING SOFTER. NO ADDITIONAL BLOOD SEEN ON DRESSING. NO POOLING OF BLOOD TO THE BACK. CONTINUE PLAN OF CARE AND SAFETY PRECAUTIONS. FAMILY AT BEDSIDE. REFUSE SCDs.
[2017-06-07 20:00] VITALS: BP 219/90
--- NOTE | 2017-06-07 20:26 | NUR ---
RESUMED CARE OF PT, LYING IN BED RESPIRATIONS EVEN AND UNLABORED ON 2PM VIA NC. 70 SR ON TELEMETRY. SMALL HEMATOMA TO RIGHT GROIN, PEDAL PULSE PALPABLE. BP 219/90, DR. HAM NOTIFIED AND NEW ORDERS RECEIVED. LEFT AC SALINE LOCKED. CALL LIGHT IN REACH. WILL CONTINUE TO MONITOR. SEENURSE ASSESSMENT.
[2017-06-08] VITALS: BP 178/78
--- NOTE | 2017-06-08 00:18 | NUR ---
EMBEDDED SOFTWARE ARCHITECT AT BEDSIDE TO OBTAIN VITALS, CALL LIGHT IN REACH. WILL CONTINUE TO MONITOR.
--- NOTE | 2017-06-08 01:53 | NUR ---
BP IMPROVED 142/47, LYING IN BED WITH EYES CLOSED. WILL CONTINUE TO MONITOR.
[2017-06-08 04:00] VITALS: BP 133/68
--- NOTE | 2017-06-08 04:51 | NUR ---
NO CHANGES FROM PREVIOUS ASSESSMENT, CALL LIGHT IN REACH. AT BEDSIDE.
--- NOTE | 2017-06-08 07:30 | NUR ---
PT AAOX4 RESP UNLABORED C/O ABD PAIN NAUSEA AND INDIGESTION AT THIS TIME
[2017-06-08 07:47] VITALS: BP 151/52
--- NOTE | 2017-06-08 09:00 | NUR ---
ZOFRAN 4 MG GIVEN SIVP FOR C/O NAUSEA
--- NOTE | 2017-06-08 09:30 | NUR ---
NO RELIEF FROM ZOFRAN
[2017-06-08 09:37] VITALS: Ht 180.3 cm; Wt 104.3 kg
--- NOTE | 2017-06-08 09:50 | NUR ---
CALLED [facility] RECEIVED NEW ORDERS
--- NOTE | 2017-06-08 09:56 | NUR ---
PHENERGAN 25 MG GIVEN PO FOR C/O NAUSEA AND ABD PAIN/DISCOMFORT
--- NOTE | 2017-06-08 10:24 | NUR ---
GI COCKTAIL GIVEN PO FOR NAUSEA ABD PAIN/DISCOMFORT
--- NOTE | 2017-06-08 11:00 | NUR ---
PT STATES NAUSEA RELIEVED AABD PAIN RELIEVED SORENESS NOTED TO EPIGASTRIC AREA
[2017-06-08 11:42] VITALS: BP 127/52
--- NOTE | 2017-06-08 12:10 | NUR ---
REVIEWED DISCHARGE INSTRUCTIONS WITH PT STATES UNDERSTANDING COPY GIVEN DCD SALINE LOCK TO LAC WITH IV CATHETER INTACT SITE FREE OF REDNESS OR EDEMA PT DISCHARGED HOME LEFT UNIT VIA W/C WITH ALL PERSONAL BELONGINGS IN STABLE CONDITION
--- NOTE | 2017-06-08 12:15 | NUR ---
DR HAM HERE TO SEE PT
--- NOTE | 2017-06-08 12:22 | OP ---
PATIENT NAME: JENNIE YEBOAH MEDICAL RECORD: [id number] :36 LOCATION:D.M2 D.2114 ADMISSION DATE:06/07/17 SURGEON: DIPAK HAM MD DATE OF OPERATION: 06/07/2017 PROCEDURES: 1. PTCA RCA. 2. Left heart catheterization. 3. Selective coronary angiography. 4. Left ventriculogram. INDICATION: Angina and coronary artery disease. PROCEDURE IN DETAIL: After informed consent was obtained and after detailed explanation of risks, benefits as well as alternative therapies, the patient elected to proceed with angiogram and angioplasty. The right femoral area was prepped and draped in normal sterile fashion. The right femoral artery was cannulated via modified Seldinger technique with placement of 6-Ethiopian sheath. All catheters exchanged through this sheath. FINDINGS: The left ventriculogram was performed in standard 30-degree BATRES view, reveals good cardiac wall motion throughout all segments. Overall ejection fraction estimated 60%. SELECTIVE CORONARY ANGIOGRAPHY: 1. Left main is with no significant angiographic disease. 2. Left anterior descending has previously placed stents. There is up to 40% to 50% in-stent restenosis in the mid vessel, but no flow-limiting stenosis. 3. The left circumflex has mild irregularities, but no flow-limiting stenosis. 4. The right coronary has previously placed stents. There is 99% in-stent restenosis in the mid distal vessel. PTCA OF THE RIGHT CORONARY: The balloon used was 2.5 and 3.0 balloon, multiple high pressure inflations were made up to 21 atmospheres. Result was 0% residual stenosis. OVERALL IMPRESSION: Successful percutaneous transluminal coronary angioplasty for in-stent restenosis to the right coronary artery going from 99% initial stenosis to 0% residual stenosis. TRANSINT:[id number] Voice Confirmation ID: [id number] DOCUMENT ID: [id number] DIPAK HAM MD at 1222 CC: [id number] DICTATION DATE: 06/07/17 1632 SUBPOENA SERVER: 06/07/172 ADM IN [address] [place] [address]
--- NOTE | 2017-06-08 12:22 | HP ---
PATIENT: JENNIE YEBOAH MEDICAL RECORD: [id number] ACCOUNT: [id number] LOCATION:[address] : 36 ADMISSION DATE: 06/07/17 HISTORY AND PHYSICAL EXAMINATION ADMITTING DIAGNOSES: 1. Chest pain. 2. Coronary artery disease. 3. Previous percutaneous transluminal coronary angioplasty stent. 4. Hyperlipidemia. 5. Hypertension. HISTORY OF PRESENT ILLNESS: Mr. Yeboah presents with chest pain that started yesterday. It is like his previous angina in many ways; however, there are components that are not like his previous angina. Last PTCA stent was in December. His EKG is with no acute changes. His troponin is normal from [place]. PHYSICAL EXAMINATION: GENERAL APPEARANCE: Well-nourished, well-developed, appears stated age. Level of distress, comfortable. PSYCHIATRIC: Mental status, alert, normal affect. Orientation, oriented to time, place and person. EYES: Lids and conjunctiva, noninjected. No discharge, no pallor. ENT: Lips, teeth, gums, normal dentition. Oropharynx, no cyanosis, no pallor. NECK: Carotid arteries, bilateral normal upstroke, no bruits, no thrills. JUGULAR VEINS: No jugular venous pressure or distention. CERVICAL LYMPH NODES: Nontender, nonenlarged. THYROID: Not enlarged. Nontender. No nodules. LUNGS: Respiratory effort, unlabored. CHEST: Normal curvature. No thoracic deformity. No chest wall tenderness. Percussion, resonant. Auscultation, clear. No wheezes, no rales, no rhonchi. CARDIOVASCULAR: Precordial exam, nondisplaced. No heaves or pericardial thrills. Rate and rhythm, regular. Heart sounds, normal S1, normal S2. No S3, no gallop, no rub. Systolic murmur, not heard. Diastolic murmur, not heard. EXTREMITIES: No cyanosis, no edema. Peripheral pulses, full and equal in all extremities, except as noted. No bruits appreciated. ABDOMEN: Soft, nondistended. Normal aorta. No bruit. Nontender. No masses. Liver, nontender, no hepatomegaly. Spleen, nontender, no splenomegaly. MUSCULOSKELETAL: No joint tenderness. No joint swelling. No erythema. NEUROLOGICAL: Normal gait, normal strength, normal tone. SKIN: Warm and dry. REVIEW OF SYSTEMS: The patient reports easy bruising but reports no swollen glands. The patient reports no fever, no night sweats, no significant weight gain, no significant weight loss. No significant exercise tolerance. The patient reports no dry eyes, no irritation, no vision change. Patient reports no difficulty hearing and no ear pain. Patient reports no frequent nose bleeds or nose and sinus problems. Patient reports on arm pain on exertion. No shortness of breath while lying down. No history of heart murmur. Patient reports no cough, no wheezing or coughing up blood. Patient reports no abdominal pain, no vomiting. Normal appetite. No diarrhea and not vomiting blood. No nausea and no constipation. Patient reports no incontinence. No difficulty urinating. No hematuria. No increased frequency. Patient reports no muscle aches. No weakness, no arthralgias, no back pain. No swelling of the extremities. Patient reports no abnormal mole, no jaundice, no rashes. Reports HISTORY AND PHYSICAL [id number] JENNIE YEBOAH no loss of consciousness. No weakness and no numbness. No seizures, dizziness, or headaches. The patient reports no depression, no sleep disturbance, feeling safe in a relationship and no alcohol abuse. Patient reports on fatigue. Reports no runny nose or sinus pressure. No itching, no hives, and no frequent sneezing. OVERALL IMPRESSION: Chest pain with some components compatible with angina. No acute EKG changes, but he had quite severe episodes of chest pain yesterday. We will proceed with coronary angiography. Further care depends on the findings of the angiography. TRANSINT:[id number] Voice Confirmation ID: [id number] DOCUMENT ID: [id number] DIPAK HAM MD at 1222 CC: [id number] DICTATION DATE: 06/07/17 0947 INTERNATIONAL SPECIALIST: 06/07/17 1001 ADM IN [facility] [address] [place] [address]
== END 2017-06-08 12:10 | disposition home or self-care (01) ==
LOC: OBSVTIME → D.M2 09:25 → UNDOADMOB 09:25 → D.OPS 09:25 → OBSVTIME 09:25 → EDSTATUS 11:00 → D.OPS 06-08 12:10 → D.M2 06-08 12:10
DX: I25.119 Atherosclerotic heart disease of native coronary artery with unspecified angina pectoris (principal); E78.5 Hyperlipidemia, unspecified; I10 Essential (primary) hypertension; Z95.5 Presence of coronary angioplasty implant and graft; Z01.812 Encounter for preprocedural laboratory examination

== ENCOUNTER → 2018-12-18 13:49 | Outpatient (CLI) | payer MEDICARE, BC ==
[2017-06-08 09:37] VITALS: BMI 32.0
== END | disposition home or self-care (01) ==
LOC: D.CT 12-17 14:30
PROVIDERS: ATTEND Internal Medicine Interventional Cardiology
DX: G45.9 Transient cerebral ischemic attack, unspecified (principal)

== ENCOUNTER 2018-12-27 12:46 | Inpatient (IN) | payer MEDICARE, BC ==
[~2018-12-27] VITALS: Ht 180.3 cm; Wt 110.6 kg
[2018-12-27] MEDS ORDERED: NITROQUICK0.4 MG SL (13:08)
[2018-12-27] MEDS ORDERED: AMITIZA24 MCG PO (13:08)
[2018-12-27] MEDS ORDERED: PROPAFENONE HC300 MG PO (13:08)
[2018-12-27] MEDS ORDERED: AGGRENOX 200/251 CAP PO (13:09)
[2018-12-27] MEDS ORDERED: MOBIC7.5 MG PO (13:09)
[2018-12-27] MEDS ORDERED: ACETAMINOPHEN325 MG PO (13:10)
[2018-12-27] MEDS ORDERED: MIRALAX17 GM PO (13:10)
[2018-12-27 14:35] LABS: HEMATOCRIT 43.2 % (42.0-54.0); MCH 28.7 pg (26.0-34.0); MCHC 32.4 g/dL (31.0-37.0); MCV 88.5 fL (80.0-100.0); RBC 4.88 10x6/uL (4.20-6.10); RDW 14.4 % (11.5-14.5); WBC 8.2 10x3/uL (4.8-10.8)
[2018-12-27 14:42] LABS: APPEARANCE CLEAR (CLEAR); BILIRUBIN NEGATIVE (NEGATIVE); COLOR YELLOW (YELLOW); GLUCOSE NEGATIVE (NEGATIVE); KETONE NEGATIVE (NEGATIVE); NITRITE NEGATIVE (NEGATIVE); PROTEIN NEGATIVE (NEGATIVE); UROBILINOGEN NORMAL (NORMAL)
[2018-12-27 14:44] LABS: BACTERIA FEW /hpf (NONE SEEN); RED CELLS - URINE 0-5 /hpf (0-5); WHITE CELLS - URINE OCC /hpf (0-5)
[2018-12-27 14:46] LABS: APTT 26.1 SECONDS (22.8-39.4); INR 1.04 (0.85-1.17); PROTIME 13.1 SECONDS (11.6-15.0)
[2018-12-27 14:51] LABS: ALBUMIN 3.8 g/dL (3.4-5.0); ANION GAP 12.6 mmol/L (8-16); BILIRUBIN - TOTAL 0.35 mg/dL (0.2-1.3); CALCIUM 9.4 mg/dL (8.5-10.1); CARBON DIOXIDE 30.5 mmol/L (21.0-32.0); CREATININE - SERUM 1.2 mg/dL (0.6-1.3); POTASSIUM - SERUM 4.1 mmol/L (3.5-5.1); PROTEIN - SERUM 7.2 g/dL (6.4-8.2)
[2018-12-31] VITALS (27 sets, daily range): BP systolic 101–198; BP diastolic 34–80; BMI 34.9
[2018-12-31] MEDS ORDERED: ASPIRIN325 MG PO (11:09)
--- NOTE | 2018-12-31 11:25 | NUR ---
ELEVATED BP 206/97, NEW ORDERS RECEIVED FROM DR. LEBLANC
[2018-12-31 16:56] LABS: APPEARANCE CLEAR (CLEAR); BILIRUBIN NEGATIVE (NEGATIVE); COLOR YELLOW (YELLOW); GLUCOSE NEGATIVE (NEGATIVE); KETONE NEGATIVE (NEGATIVE); NITRITE NEGATIVE (NEGATIVE); PROTEIN NEGATIVE (NEGATIVE); UROBILINOGEN NORMAL (NORMAL)
--- NOTE | 2018-12-31 18:56 | NUR ---
1751- PT ARRIVED TO CVICU. ALL MONITORING EQUIPMENT ATTACHED AND ALARMS SET. PT FOLLOWS COMMAND AND ANSWERS QUESTIONS APPROPRIATELY. NITRO INFUSING AT 30ML/HR AND CLEVIPREX AT 6ML/HR. RT RADIAL ART LINE ZEROED. O2 TITRATED FROM SIMPLE MASK TO NC 6L. WILL TITRATE MEDS AND O2 ORDERED. PT WITH OUT NEURO DEFICITS. PT C/O NAUSEA. ZOFRAN GIVEN. IN TO SEE PT. VISITATION SCHEDULE GIVEN.
--- NOTE | 2018-12-31 19:20 | NUR ---
Received patient resting in bed with eyes closed, assessment completed per flowsheet. Patient AO x4, answers appropriately/follows instructions. L anterior neck incision dressing CDI, no difficulty swallowing/breathing noted. S1/S2 noted NSR with occasional pacing noted on telemetry, rythmic and regular. Breathing is shallow on 2L via NC with O2 sat 99%, lung sounds clear bilateral upper and mid with diminished lower. L upper chest JOSE F x1 with small bloody drainage, R upper chest implanted pacmaker. Abdomen is obese/soft with bowel sounds active x4, old scars noted. Criticore secured, clear yellow urine noted. R radial A-line with good waveform, zeroed with wrist protector in use. Remaining pulses palpable with cap refill < 3 sec, skin warm/dry. Repositioned for comfort, no further needs and will continue to monitor.
--- NOTE | 2018-12-31 19:29 | NUR ---
PT VERBILIZES NEED FOR BM. ASSISTED WITH NADEEN STAPLES.
--- NOTE | 2018-12-31 21:15 | NUR ---
HS meds given with small sips of water, no difficulty swallowing observed. Patient family at bedside, discussed discharge plans/post-op with all questions answered to satisfaction. No further needs at this time, will continue to monitor.
--- NOTE | 2018-12-31 23:10 | NUR ---
Reassessment completed per flowsheet, no changes noted from previous assessment. L anterior neck incision, dressing CDI with no difficulty breathing/swallowing. S1/S2 noted with occasional pacing on telemetry, rythmic and regular. Breathing is shallow on 2L via NC with O2 sat 96%, lung sounds clear bilateral upper and mid with diminished lower. R radial A-line with good waveform, wrist protector in use. All pulses palpable with cap refill < 3 sec, skin warm/dry. Repositioned for comfort, denies pain or other needs at this time. All VSS and will continue to monitor.
[2019-01-01] VITALS (83 sets, daily range): BP systolic 100–189; BP diastolic 40–91; Ht 180.3 cm; Wt 110.6 kg
--- NOTE | 2019-01-01 01:00 | NUR ---
Patient sleeping in bed with eyes closed, no s/s of distress at this time. Titrating Nitro GTT/Clexiprex GTT per orders, no further needs and will continue to monitor.
--- NOTE | 2019-01-01 03:10 | NUR ---
Reassessment completed per flowsheet, no changes from previous assessment. L anterior neck incision dressing CDI, no difficulties swallowing/breathing observed. S1/S2 noted NSR on telemetry with rare pacing noted, rythmic and regular. Breathing is shallow on 2L via NC with O2 sat 96%, lung sounds clear bilateral upper and mid with diminished lower. R radial A-line with good waveform, wrist protector in use. All pulses palpable with cap refill < 3 sec, skin warm/dry. Denies pain or other needs at this time, see flowsheet for details. All VSS and will continue to monitor.
--- NOTE | 2019-01-01 05:10 | NUR ---
Patient sleeping in bed with eyes closed, no s/s of distress at this time. Repositioned for comfort, denies pain or other needs and will continue to monitor.
--- NOTE | 2019-01-01 07:00 | NUR ---
REPORT RECIEVED FROM THE OFF GOING RN. SEE ASSESSMENT IN THE PTS FLOW SHEET. PT LYING IN BED. DENIES PAIN. NEUROLOGICALLY INTACT. BILATERAL REHAB THERAPY MANAGER EQUAL AND SMILE SYMETRICAL. TRACHEA MIDLINE WITH NO STRIDOR NOTED. LEFT NECK DRESSING C/D/I. LEFT UPPER CHEST JOSE F DRAIN NOTED WITH SCANT AMOUNT OF BLOODY DRAINAGE. BULB COMPRESSED. RIGHT SUBCLAVIAN CVL NOTED C/D/I. SEE IV FLUIDS IN THE FLOW SHEET. NITRO AND CLIVEPREX TITRATED FOR BP. RIGHT PERMANENT PACEMAKER NOTED. NRS ON THE MONIOTOR. ON 2L VIA NC. VSS AT THIS TIME. R RADIAL LILI NOTED. WITH THE WRIST PROTECTOR ON. COLOR WNLS. DRESSING C/D/I. FC NOTED WITH CLEAR, YELLOW URINE. FC CARE COMPLETED PER POLICY. TEDS AND SCD'S ON. PT BELCHING AND C/O MILD NAUSEA. ZOFRAN GIVEN. SEE MAR. CALL LIGHT IN REACH. WILL CONT POC.
--- NOTE | 2019-01-01 07:59 | NUR ---
PT HOB ELEVATED TO 90 DEGREES AND BREAKFAST TRAY PROVIDED FOR THE PT. PT HAD NO ISSUES. CALL LIGHT IN REACH. WILL CONT POC.
--- NOTE | 2019-01-01 07:59 | NUR ---
DR LITTLE AT THE PTS BEDSIDE. ORDERS TO DC TANGELA PEARSON, JOSE F DRAIN AND TO START LOPRESSOR 25MG BID.
--- NOTE | 2019-01-01 09:38 | NUR ---
10 CC REMOVED FROM THE FC BULB AND IT WAS REMOVED. EDUCATION PROVIDED FOR THE PT. JOSE F REMOVED AND DRESSING APPLIED. PT TOLERATED WELL. LILI REMOVED WITH THE CATHETER TIP INTACT. DRESSING APPLIED. PT TOLERATED WELL. SPOKE WITH [facility] THERAPY AND THEY WILL ASSIST GETTING THE PT OOB SOON. CALL LIGHT IN REACH. WILL CONT POC.
--- NOTE | 2019-01-01 10:10 | NUR ---
PT ASSISTED OOB AND INTO HIS BEDSIDE CHAIR. PARTICAL BED BATH GIVEN AND GOWN CHANGED. PT SLIGHLY UNSTEADY ON HIS FEET. PT TOLERATED WELL. CALL LIGHT IN REACH. WILL CONT POC.
--- NOTE | 2019-01-01 10:47 | NUR ---
NITRO AND CLEVIPREX TITRATED OFF FOR BP.
--- NOTE | 2019-01-01 11:06 | NUR ---
NITRO RESTARTED AND TITRATED FOR BLOOD PRESSURE. SEE IV FLOW SHEET.
--- NOTE | 2019-01-01 12:30 | NUR ---
REPORT RECEIVED FROM DARLING. ON NITRO AT 20ML/HR. SBP 144. NITRO INCREASED TO 25ML/HR AT THIS TIME. WILL CONITINUE TO MONITOR AND TREAT PER ORDERS.
--- NOTE | 2019-01-01 13:11 | OP ---
PATIENT NAME: JENNIE YEBOAH MEDICAL RECORD: [id number] :38 LOCATION:D.CVI D.CV07 ADMISSION DATE:12/31/18 SURGEON: SALVADOR LITTLE MD DATE OF OPERATION: 12/31/2018 SURGEON: Salvador Little MD FLITCH HANGER: Brady Griffiths PROCEDURE PERFORMED: Left carotid endarterectomy. PREOPERATIVE DIAGNOSIS: Bilateral carotid stenosis with left hemispheric TIA. POSTOPERATIVE DIAGNOSIS: Bilateral carotid stenosis with left hemispheric TIA. ANESTHESIA: General endotracheal anesthesia. ESTIMATED BLOOD LOSS: 20 cc. COMPLICATIONS: None. SPECIMEN: Plaque. CONDITION: Stable. DISPOSITION: CV ICU. OPERATIVE FINDINGS: Severely calcified and ulcerated plaque in the common carotid artery extending up into the proximal internal carotid artery that feathered well in a 1-cm internal carotid closed primarily. OPERATIVE INDICATION: Left hemispheric TIA. PROCEDURE NOTE IN DETAIL: The patient was brought to the operating suite. General anesthesia was obtained. The patient was prepped and draped. An oblique incision was made in the left neck and taken down through the platysma and the muscles were divided to reveal a common carotid artery, which was dissected out and encircled. External carotid and thyroid branch were encircled with Vesseloops and hypoglossal nerve was kept out of harm's way. The ansa was preserved. The internal carotid was dissected out distally to relatively normal region of artery. Heparin was given. After the heparin had circulated, the backbleeding was controlled with a bulldog clamp, inflow with a vascular clamp, and backbleeding on the external carotid and thyroid branch with Vesseloops. EEG and cerebral oximetry were monitored, and after 2 minutes of normality, arteriotomy begun at the common carotid artery through the region of dense calcified plaque and into a relatively normal region of internal carotid. The endarterectomy was begun by dividing the plaque at the common carotid artery with eversion endarterectomy of the external carotid. Then, the plaque feathered well distally. Thorough irrigation was undertaken. All bits of loose debris were removed. The artery was then closed primarily, and prior to completing the closure, backbleeding was allowed from all 3 major vessels and thorough irrigation of the endarterectomy bed was again performed. Flow was restored first to the external carotid and then to the internal carotid. The protamine was given. Hemostasis was ensured. A drain was placed through a separate stab wound. Antibiotic irrigation was performed. Neck was closed in 3 OPERATIVE REPORT [id number] JENNIE YEBOAH L layers including Dermabond on the skin. The patient to CV ICU. Needle and sponge counts were reported as correct. TRANSINT:[id number] Voice Confirmation ID: [id number] DOCUMENT ID: [id number] SALVADOR LITTLE MD at 1311 CC: DIPAK HAM [id number] DICTATION DATE: 12/31/18 1737 CASE FOLDER: 12/31/18 1905 ADM IN [place] [id number] [place] [address]
--- NOTE | 2019-01-01 14:00 | NUR ---
NITRO INCREASED TO 30ML/HR.
--- NOTE | 2019-01-01 14:38 | NUR ---
MARY NOT AVAILABLE IN [facility]. ATTEMPTED TO CALL PHARMACY RECEIVED NO ANSWER. WILL TRY AGAIN IN FEW MINUTES.
--- NOTE | 2019-01-01 15:50 | NUR ---
LISINOPRIL GIVEN AT THIS TIME PER ORDERS.
--- NOTE | 2019-01-01 17:30 | NUR ---
SPOKE WITH DR. LITTLE REGARDING BP BEING IN 140S. ORDERED TO GIVE 25MG OF PO LOPRESSOR AT THIS TIME.
[2019-01-02] VITALS (19 sets, daily range): BP systolic 93–166; BP diastolic 44–78
--- NOTE | 2019-01-02 02:15 | NUR ---
PATIENT FOUND UP IN CHAIR WITHOUT ASSIST FROM BED. BLOOD FOUND ON SHEETS FROM CVL BEING PULLED APART. PATIENT IS ALERT AND ORIENTED X4. PATIENT STATES HIS BED FELT WET SO HE HAD TO GET UP. PATIENT INSTRUCTED ON THE USE OF CALL LIGHT BEFORE GETTING UP; PT VERBALIZES UNDERSTANDING. CVL EXTENSION TUBING DC'D FROM MAIN CVL LINE WITH PLASMOLYTE AND NTG GTT RESTARTED.
--- NOTE | 2019-01-02 03:40 | NUR ---
PATIENT USED CALL LIGHT AND STATES HE IS READY TO GO BACK TO BED. FRESH LINENS CHANGED ON BED, AND PATIENT ASSISTED BACK TO BED. CALL LIGHT WITHIN REACH AND BED IN LOW POSITION.
--- NOTE | 2019-01-02 07:00 | NUR ---
REPORT RECEIVED FROM THE OFF GOING RN. SEE ASSESSMENT IN THE PTS FLOW SHEET. PT SITTING UPRIGHT IN THE BEDSIDE CHAIR. RIGHT SUBCLAVIAN CVL NOTED. C/D/I. NITRO BEING TITRATED FOR BP PER ORDERS. LEFT IJ DRESSING C/D/I. LEFT UPPER CHEST OLD JOSE F SITE HEALING WELL WITH NO DRAINAGE NOTED. PT DENIES NEEDS/PAIN AT THIS TIME. MEAL TRAY PROVIDED FOR THE PT. CALL LIGHT IN REACH. WILL CONT POC.
--- NOTE | 2019-01-02 09:00 | NUR ---
PHYSICAL THEARPY AT THE PTS BEDSIDE. ASSISTED WITH THE PT AMBULATING. SLOW BUT STEADY GAIT. 250 FEET AMBULATED. VSS. WILL CONT POC.
[2019-01-02] MEDS ORDERED: ASPIRIN81 MG PO (09:28)
--- NOTE | 2019-01-02 10:02 | NUR ---
DR LITTLE AT THE PTS BEDSIDE.
--- NOTE | 2019-01-02 11:16 | NUR ---
BLOOD COLLECTED FROM THE CVL AND SENT TO THE LAB.
[2019-01-02 11:53] LABS: CALC OSMOLALITY 273 mosm/kg (275-300); CALCIUM 8.3 mg/dL (8.5-10.1); CARBON DIOXIDE 26.6 mmol/L (21.0-32.0); CHLORIDE - SERUM 99 mmol/L (98-107); CREATININE - SERUM 0.9 mg/dL (0.6-1.3); GLUCOSE 140 mg/dL (74-106); POTASSIUM - SERUM 3.6 mmol/L (3.5-5.1); SODIUM 134 mmol/L (136-145); UREA NITROGEN 25 mg/dL (7-18); eGFR NON AFRICAN AMERICAN 86 mL/min (90-120)
[2019-01-02 11:57] LABS: HEMATOCRIT 36.2 % (42.0-54.0); HEMOGLOBIN 11.9 g/dL (13.5-17.5); MCH 28.6 pg (26.0-34.0); MCHC 32.9 g/dL (31.0-37.0); MEAN PLATELET VOLUME 10.5 fL (7.4-10.4); PLATELET COUNT 184 10x3/uL (130-400); RBC 4.16 10x6/uL (4.20-6.10); RDW 14.9 % (11.5-14.5)
--- NOTE | 2019-01-02 12:36 | NUR ---
LAB RESULTS RECEIVED. NOTIFIED OLIVERIO BRAY, DR PRICE NURSE, START PO LEVOQUIN. HOME SCRIPT WILL BE GIVEN TO THE PT.
[2019-01-02 12:49] LABS: LYMPHOCYTES 11 % (15-50); MONOCYTES 8 % (2-11); NEUTROPHILS 79 % (40-80); PLATELET ESTIMATE NORMAL
--- NOTE | 2019-01-02 14:02 | NUR ---
CVL PULLED WITH THE CATHETER TIP INTACT. DRESSING APPLIED. PT TOLERATED WELL.
--- NOTE | 2019-01-02 14:10 | NUR ---
OLIVERIO RN, DR LITTLE'S NURSE GAVE A PERSCRIPTION FOR LEVATUIN 750MG 1 QD X10 DAYS TO THE PT. IT WAS ADDED AFTER MEDICAITON HAS BEEN FINALIZED.
--- NOTE | 2019-01-02 15:08 | NUR ---
PT DISCHARGE INSTRUCTIONS INCLUDING THE LEVAQUIN WENT OVER WITH THE PT AND THE . PAPER SCRIPT GIVEN TO THE PT. ALL PAPER WORK SIGNED BY THE PT. THEY ARE AWARE OF DISCHARGE INSTRUCTIONS/TEACHING. ALL BELONINGS ACCOUNTED FOR. PT LEFT AND GOT INTO HIS DAUGHTERS CAR DRIVEN BY THE DAUGHTER. PT LEFT IN A STABLE CONDITION WITH NO S/SX OF DISTRESS/DISCOMOFORT NOTED.
--- NOTE | 2019-01-02 18:32 | MORECARE ---
CASE MANAGEMENT DISCHARGE SUMMARY PATIENT: JENNIE YEBOAH UNIT: [id number] ADM DATE: 12/31/18 AGE: 78 : 38 SEX: M ROOM/BED: [facility] AUTHOR: ELA MCGILL PHYSICIAN: REFERRING PHYSICIAN: ELROY LITTLE MD DATE OF SERVICE: 01/02/19 Discharge Plan Patient Name: JENNIE YEBOAH Facility: [facility]:[place] : 1940 Planned Disposition: Home Anticipated Discharge Date: Discharge Date: 01/02/2019 Expected LOS: Initial Reviewer: [email or web address] Initial Review Date: 01/01/2019 Generated: 01/02/19 7:32 pm DCPIA - Discharge Planning Initial Assessment Updated by [email or web address]: Vernell Flores on 01/02/19 6:29 pm * Is the patient Alert and Oriented? Yes * How many steps to enter\exit or inside your home? * PCP [facility] * [facility] * Preadmission Environment Home with Family * ADLs Independent * Other Equipment W/C, WALKER W SEAT, BSC * List name and contact numbers for known caregivers / representatives who currently or will assist patient after discharge: BLANQUITA YEBOAH - SPOUSE - [phone] * Verbal permission to speak to the caregivers and representatives has been obtained from the patient. Yes * Community resources currently utilized None * Additional services required to return to the preadmission environment? No * Can the patient safely return to the preadmission environment? Yes * Has this patient been hospitalized within the prior 30 days at any hospital? No Patient Name: JENNIE YEBOAH Page [phone] at 1832 All edits/amendments must be made on the electronic document DICTATION DATE: 01/02/191830 VP PUBLIC RELATIONS: DAVID 01/02/191830 RPT#: [id number] DC DATE:01/02/19 STATUS: DIS IN [facility] [address] [place] [address] END OF REPORT
--- NOTE | 2019-01-02 18:42 | MORECARE ---
CASE MANAGEMENT DISCHARGE SUMMARY PATIENT: JENNIE YEBOAH UNIT: [id number] ADM DATE: 12/31/18 AGE: 78 : 38 SEX: M ROOM/BED: [facility] AUTHOR: NANO,DOC PHYSICIAN: REFERRING PHYSICIAN: ELROY LITTLE MD DATE OF SERVICE: 01/02/19 Discharge Plan Patient Name: JENNIE YEBOAH Facility: [facility]:[place] : 1940 Planned Disposition: Home Anticipated Discharge Date: Discharge Date: 01/02/2019 Expected LOS: Initial Reviewer: [email or web address] Initial Review Date: 01/01/2019 Generated: 01/02/19 7:41 pm Comments DCP- Discharge Planning Updated by [email or web address]: Vernell Flores on 01/02/19 5:[address] LATE ENTRY 01/01/19 @ 1800 Patient Name: JENNIE YEBOAH Admission Status: Elective Accout number: [id number] Admission Date: 12-31-2018 : 1940 Admission Diagnosis: Attending: ELROY LITTLE Current LOS: 2 Anticipated DC Date: Planned Disposition: Home Primary Insurance: MEDICARE A & B Discharge Planning Comments: CM met with patient and spouse at bedside. Patient states he lives at home with his spouse (Blanquita). He plans on returning to their home upon discharge. He states he feels safe at his home. He states he will have family drive him home upon discharge. He denies any discharge needs at this time. CM will continue to follow and assist as needed with discharge planning / needs. Cutter Grinder Operator: Vernell Flores DCPIA - Discharge Planning Initial Assessment Updated by [email or web address]: Vernell Flores on 01/02/19 6:29 pm * Is the patient Alert and Oriented? Yes * How many steps to enter\exit or inside your home? * PCP [facility] * Pharmacy [facility] * Preadmission Environment Home with Family * ADLs Independent * Other Equipment W/C, WALKER W SEAT, BSC * List name and contact numbers for known caregivers / representatives who currently or will assist patient after discharge: BLANQUITA YEBOAH - SPOUSE - [phone] * Verbal permission to speak to the caregivers and representatives has been obtained from the patient. Yes * Community resources currently utilized None * Additional services required to return to the preadmission environment? No * Can the patient safely return to the preadmission environment? Yes * Has this patient been hospitalized within the prior 30 days at any hospital? No Last DP export: 01/02/19 5:32 p Patient Name: JENNIE YEBOAH Page [id number] at 1842 All edits/amendments must be made on the electronic document DICTATION DATE: 01/02/191840 STEAMER GUM CANDY: DAVID 01/02/191840 RPT#: [id number] DC DATE:01/02/19 STATUS: DIS IN [facility] [address] [place] [address] END OF REPORT
== END 2019-01-02 15:10 | disposition home or self-care (01) | DRG 38 ==
LOC: D.SDCHOLD 12-31 07:30 → D.CVICU 12-31 10:30 → D.SDCHOLD 12-31 10:30 → D.CVICU 12-31 13:27 → D.SDCHOLD 12-31 14:15 → D.CVICU 01-02 15:10
PROVIDERS: ADMIT Thoracic Surgery (Cardiothoracic Vascular Surgery); ATTEND Thoracic Surgery (Cardiothoracic Vascular Surgery)
PROC: 03CL0ZZ Extirpation of Matter from Left Internal Carotid Artery, Open Approach (ICD-10-PCS; principal; 2018-12-31 14:15)
DX: I65.23 Occlusion and stenosis of bilateral carotid arteries (principal); N39.0 Urinary tract infection, site not specified; R60.0 Localized edema; G45.9 Transient cerebral ischemic attack, unspecified; E11.9 Type 2 diabetes mellitus without complications; I10 Essential (primary) hypertension; I25.10 Atherosclerotic heart disease of native coronary artery without angina pectoris

== ENCOUNTER → 2019-04-30 11:56 | Outpatient (CLI) | payer MEDICARE, BC ==
[2019-01-01 10:10] VITALS: BMI 35.3
[~2019-04-30 11:56] MED LIST changes: +ACETAMINOPHEN325 MG PO; +AGGRENOX 200/251 CAP PO; +AMITIZA24 MCG PO; +ASPIRIN325 MG PO; +ASPIRIN81 MG PO; +MIRALAX17 GM PO; +MOBIC7.5 MG PO; +NITROQUICK0.4 MG SL
== END | disposition home or self-care (01) ==
LOC: D.US 11:56
PROVIDERS: ATTEND Thoracic Surgery (Cardiothoracic Vascular Surgery)
DX: I65.23 Occlusion and stenosis of bilateral carotid arteries (principal)

== ENCOUNTER → 2019-05-03 12:34 | Outpatient (CLI) | payer MEDICARE, BC ==
[2019-01-01 10:10] VITALS: BMI 35.3
== END | disposition home or self-care (01) ==
LOC: D.CT 12:34
PROVIDERS: ATTEND Thoracic Surgery (Cardiothoracic Vascular Surgery)
DX: I65.23 Occlusion and stenosis of bilateral carotid arteries (principal)